=== PATIENT | male | born 1965 | race Caucasian/White ===

== ENCOUNTER 2017-09-06 15:58 | Observation (INO) | payer MEDICAID, OTHER ==
[~2017-09-06] VITALS: Ht 172.7 cm; Wt 110.5 kg
[~2017-09-06 15:58] MED LIST: ATOR10TA15 PO; CINN500C PO; GLIM4TAB PO; HYDR12.57 PO; INSU-171 SQ; LEVO750T33 PO; LISI10TA3 PO; METF-382 PO; METO1TAB42 PO; MINO100 PO; MULT1TAB84 PO; NOVO7030P2 SQ
[2017-09-06 16:27] VITALS: BP 205/93; PULSE 97; RESP 14; TEMP 98.2; O2SAT 98
--- NOTE | 2017-09-06 17:39 | PD ---
HPI Chief Complaint: Chest Pain Time Seen by Provider: 17:37 Travel History International Travel<30 days: No Contact w/Intl Traveler<30days: No Traveled to known affect area: No History of Present Illness HPI 51-year-old male with history of hypertension, asthma, diabetes, presents the emergency department for evaluation of acute onset chest pain. Pain was substernal in nature. It did not radiate anywhere. It was accompanied by diaphoresis, nausea, and lightheadedness. This around 4 PM today when the patient came inside from being in the heat all day. He checked his blood pressure and noticed it was high with a systolic greater than 200 and a diastolic greater than 100. That is why he came to the emergency department, with concern for his blood pressure. While sitting and waiting, the patient states he began to cool off and the chest pain subsided. He has been belching frequently since then. He remained diaphoretic and clammy feeling. He denies any pain at this time. PFSH Past Medical History Diabetes: Yes Respiratory: Yes Social History Alcohol Use: No Tobacco Use: No Substance Use: No Allergies-Medications (Allergen,Severity, Reaction): Uncoded Allergies: tia/poly/hc otic donny (Adverse Reaction, Unknown, Rash, 09/06/17) Reported Meds & Prescriptions Reported Meds & Active Scripts Active Reported Amlodipine (Amlodipine Besylate) 2.5 Mg Tab 2.5 Mg PO DAILY Metformin ER (Metformin HCl) 1,000 Mg Anjali 1,000 Mg PO DAILY With evening meal Review of Systems Except as stated in HPI: all other systems reviewed are Neg Physical Exam Narrative GENERAL: Well-nourished male patient, in no acute distress SKIN: Focused skin assessment warm/dry. HEAD: Atraumatic. Normocephalic. EYES: Pupils equal and round. No scleral icterus. No injection or drainage. ENT: No nasal bleeding or discharge. Mucous membranes pink and moist. NECK: Trachea midline. No JVD. CARDIOVASCULAR: Elevated rate and rhythm. No murmur appreciated. RESPIRATORY: No accessory muscle use. Clear to auscultation. Breath sounds equal bilaterally. GASTROINTESTINAL: Abdomen rotund, soft, nontender.. Hepatic and splenic margins not palpable. MUSCULOSKELETAL: No obvious deformities. No clubbing. No cyanosis. No edema. NEUROLOGICAL: Awake and alert. No obvious cranial nerve deficits. Motor grossly within normal limits. Normal speech. PSYCHIATRIC: Appropriate mood and affect; insight and judgment normal. Data Data Last Documented VS Vital Signs Date Time Temp Pulse Resp B/P (MAP) Pulse Ox O2 Delivery O2 Flow Rate FiO2 09/06/17 18:08 83 16 157/74 (101) 97 Room Air 09/06/17 17:44 21 09/06/17 16:27 98.2 Orders Orders Electrocardiogram (09/06/17 16:35) Complete Blood Count With Diff (09/06/17 16:35) Basic Metabolic Panel (Bmp) (09/06/17 16:35) Ckmb (Isoenzyme) Profile (09/06/17 16:35) Troponin I (09/06/17 16:35) Iv Access Insert/Monitor (09/06/17 16:35) Ecg Monitoring (09/06/17 16:35) Oxygen Administration (09/06/17 16:35) Oximetry (09/06/17 16:35) Chest, Pa & Lat (09/06/17 16:35) Aspirin Chew (Aspirin Chew) (09/06/17 18:00) Nitroglycerin 2% Oint (Nitroglycerin 2% (09/06/17 18:00) Sodium Chlorid 0.9% 500 Ml Inj (Ns 500 M (09/06/17 18:00) CKMB (09/06/17 16:52) CKMB% (09/06/17 16:52) Admit Order (Ed Use Only) (09/06/17 18:35) Labs Laboratory Tests Test 09/06/17 16:52 White Blood Count 10.2 TH/MM3 Red Blood Count 5.46 MIL/MM3 Hemoglobin 15.0 GM/DL Hematocrit 44.4 % Mean Corpuscular Volume 81.2 FL Mean Corpuscular Hemoglobin 27.4 PG Mean Corpuscular Hemoglobin Concent 33.8 % Red Cell Distribution Width 13.9 % Platelet Count 307 TH/MM3 Mean Platelet Volume 8.1 FL Neutrophils (%) (Auto) 71.9 % Lymphocytes (%) (Auto) 15.5 % Monocytes (%) (Auto) 7.2 % Eosinophils (%) (Auto) 4.9 % Basophils (%) (Auto) 0.5 % Neutrophils # (Auto) 7.3 TH/MM3 Lymphocytes # (Auto) 1.6 TH/MM3 Monocytes # (Auto) 0.7 TH/MM3 Eosinophils # (Auto) 0.5 TH/MM3 Basophils # (Auto) 0.1 TH/MM3 CBC Comment DIFF FINAL Differential Comment Blood Urea Nitrogen 13 MG/DL Creatinine 1.54 MG/DL Random Glucose 303 MG/DL Calcium Level 8.6 MG/DL Sodium Level 140 MEQ/L Potassium Level 3.8 MEQ/L Chloride Level 104 MEQ/L Carbon Dioxide Level 24.4 MEQ/L Anion Gap 12 MEQ/L Estimat Glomerular Filtration Rate 48 ML/MIN Total Creatine Kinase 133 U/L Creatine Kinase MB 2.8 NG/ML Troponin I LESS THAN 0.02 NG/ML MDM Medical Decision Making Medical Screen Exam Complete: Yes Emergency Medical Condition: Yes Medical Record Reviewed: Yes Differential Diagnosis ACS versus indigestion versus bronchospasm versus esophageal spasm versus chest wall pain versus pleuritic pain versus anxiety Narrative Course 51-year-old male presents emergency department for evaluation of acute onset chest pain with elevated blood pressure, diaphoresis, lightheadedness, and nausea. Patient appears nontoxic. He is currently not having any pain however he does feel clammy. Laboratory Tests Test 09/06/17 16:52 White Blood Count 10.2 TH/MM3 Red Blood Count 5.46 MIL/MM3 Hemoglobin 15.0 GM/DL Hematocrit 44.4 % Mean Corpuscular Volume 81.2 FL Mean Corpuscular Hemoglobin 27.4 PG Mean Corpuscular Hemoglobin Concent 33.8 % Red Cell Distribution Width 13.9 % Platelet Count 307 TH/MM3 Mean Platelet Volume 8.1 FL Neutrophils (%) (Auto) 71.9 % Lymphocytes (%) (Auto) 15.5 % Monocytes (%) (Auto) 7.2 % Eosinophils (%) (Auto) 4.9 % Basophils (%) (Auto) 0.5 % Neutrophils # (Auto) 7.3 TH/MM3 Lymphocytes # (Auto) 1.6 TH/MM3 Monocytes # (Auto) 0.7 TH/MM3 Eosinophils # (Auto) 0.5 TH/MM3 Basophils # (Auto) 0.1 TH/MM3 CBC Comment DIFF FINAL Differential Comment Blood Urea Nitrogen 13 MG/DL Creatinine 1.54 MG/DL Random Glucose 303 MG/DL Calcium Level 8.6 MG/DL Sodium Level 140 MEQ/L Potassium Level 3.8 MEQ/L Chloride Level 104 MEQ/L Carbon Dioxide Level 24.4 MEQ/L Anion Gap 12 MEQ/L Estimat Glomerular Filtration Rate 48 ML/MIN Total Creatine Kinase 133 U/L Creatine Kinase MB 2.8 NG/ML Troponin I LESS THAN 0.02 NG/ML Last Impressions Chest X-Ray 09/06/17 7835 Signed Impressions: CONCLUSION: Negative examination. Results are discussed with my attending and the patient. Patient will be admitted to the chest pain center. They are in agreement with this plan of care. Diagnosis Primary Impression: Chest pain Qualified Codes: R07.9 - Chest pain, unspecified Admitting Information Admitting Physician Requests: Observation Condition: Stable Myra Carolnia Sep 06, 2017 17:39
--- NOTE | 2017-09-06 17:40 | RADRPT ---
EXAM DATE: 09/06/2017 5:02 PM EDT AGE/SEX: 51 years / Male INDICATIONS: Chest pain. CLINICAL DATA: This is the patient's initial encounter. Patient reports that signs and symptoms have been present for 1 day and indicates a pain score of 5/10. MEDICAL/SURGICAL HISTORY: Hypertension. None. COMPARISON: No prior exams available for comparison. FINDINGS: PA and lateral views of the chest demonstrate the lungs to be symmetrically aerated without evidence of mass, infiltrate or effusion. The cardiomediastinal contours are unremarkable. Osseous structures are intact. CONCLUSION: Negative examination. Electronically signed by: Raghav Lew MD 09/06/2017 5:39 PM EDT
[2017-09-06 17:44] VITALS: BP 184/91; PULSE 92; RESP 16; O2SAT 96
[2017-09-06] MEDS ORDERED: AMLO2.5T PO (17:48)
[2017-09-06 17:57] LABS: AUTOMATED NEUTROPHIL # 7.3 TH/MM3 (1.8-7.7); BASOPHIL # 0.1 TH/MM3 (0-0.2); BASOPHIL % 0.5 % (0.0-2.0); EOSINOPHIL # 0.5 TH/MM3 (0-0.4); EOSINOPHIL % 4.9 % (0.0-4.0); HEMATOCRIT 44.4 % (39.0-51.0); LYMPH % 15.5 % (9.0-44.0); LYMPHOCYTE # 1.6 TH/MM3 (1.0-4.8); MEAN CELL VOLUME 81.2 FL (80.0-100.0); MEAN CORPUSCULAR HEMOGLOBIN 27.4 PG (27.0-34.0); MEAN CORPUSCULAR HGB CONC 33.8 % (32.0-36.0); MEAN PLATELET VOLUME 8.1 FL (7.0-11.0); MONO % 7.2 % (0.0-8.0); MONOCYTE # 0.7 TH/MM3 (0-0.9); NEUT % 71.9 % (16.0-70.0); PLATELET COUNT 307 TH/MM3 (150-450); RED BLOOD COUNT 5.46 MIL/MM3 (4.50-5.90); RED CELL DISTRIBUTION WIDTH 13.9 % (11.6-17.2); WHITE BLOOD COUNT 10.2 TH/MM3 (4.0-11.0)
[2017-09-06] MEDS ORDERED: ASPIRIN 81 MG CHEW TAB PO ONE (18:00)
[2017-09-06] MEDS ORDERED: SODIUM CHLORID 0.9% 500 ML INJ 500 ML IV ONE (18:00)
[2017-09-06] MEDS ORDERED: NITROGLYCERIN 2% OINT 1 GM PACKET TOP ONE (18:00)
[2017-09-06 18:08] VITALS: BP 157/74; PULSE 83; RESP 16; O2SAT 97
[2017-09-06 18:15] LABS: BICARBONATE 24.4 MEQ/L (21.0-32.0); BLOOD UREA NITROGEN 13 MG/DL (7-18); CALCIUM 8.6 MG/DL (8.5-10.1); CHLORIDE 104 MEQ/L (98-107); CREATININE 1.54 MG/DL (0.60-1.30); GLOMERULAR FILTRATION RATE 48 ML/MIN (>89); GLUCOSE,RANDOM 303 MG/DL (74-106); SODIUM (NA) 140 MEQ/L (136-145)
[2017-09-06 18:19] LABS: TROPONIN I LESS THAN 0.02 NG/ML (0.02-0.05)
[2017-09-06] MEDS ORDERED: SODIUM CHLORIDE 0.9% FLUSH 10 ML FLUSH IV FLUSH PRN (18:45)
[2017-09-06] MEDS ORDERED: NITROGLYCERIN 0.4 MG SL 25 TABS/BTL SL PRN (18:45)
[2017-09-06 21:06] LABS: TROPONIN I LESS THAN 0.02 NG/ML (0.02-0.05)
[2017-09-06 22:19] VITALS: BP 147/70; PULSE 89; RESP 20; TEMP 97.4; O2SAT 96
[2017-09-06] MEDS: SODIUM CHLORIDE 0.9% FLUSH 10 ML FLUSH IV FLUSH SCH (23:22)
[2017-09-07 00:27] VITALS: BP 171/81; PULSE 74; RESP 20; TEMP 97.5; O2SAT 97
[2017-09-07 02:13] LABS: TROPONIN I LESS THAN 0.02 NG/ML (0.02-0.05)
[2017-09-07 04:26] VITALS: BP 168/88; PULSE 79; RESP 18; TEMP 97.9; O2SAT 98
[2017-09-07] MEDS ORDERED: DEXTROSE 50% IN WATER 50 ML VIAL(D50) IV PUSH PRN (08:00)
[2017-09-07] MEDS ORDERED: GLUCAGON 1 MG/ML VIAL OTHER PRN (08:00)
--- NOTE | 2017-09-07 08:31 | EKG ---
Date Performed: 09/06/2017 Time Performed: 21:28:20 PTAGE: 51 years EKG: Sinus rhythm NORMAL ECG PREVIOUS TRACING : 09/06/2017 16.48 DOCTOR: Chema Sánchez Interpretating Date/Time 09/07/2017 08:30:53
--- NOTE | 2017-09-07 08:31 | EKG ---
Date Performed: 09/07/2017 Time Performed: 01:23:22 PTAGE: 51 years EKG: Sinus rhythm NORMAL ECG PREVIOUS TRACING : 09/06/2017 21.28 DOCTOR: Chema Sánchez Interpretating Date/Time 09/07/2017 08:30:38
--- NOTE | 2017-09-07 08:32 | EKG ---
Date Performed: 09/06/2017 Time Performed: 16:48:59 PTAGE: 51 years EKG: Sinus rhythm INCOMPLETE RIGHT BUNDLE BRANCH BLOCK BORDERLINE ECG Agree NO PREVIOUS TRACING DOCTOR: Chema Sánchez Interpretating Date/Time 09/07/2017 08:31:53
[2017-09-07 08:42] VITALS: BP 171/88; PULSE 86; RESP 18; TEMP 98.1; O2SAT 97
[2017-09-07 08:50] VITALS: PULSE 88
[2017-09-07] MEDS: SODIUM CHLORIDE 0.9% FLUSH 10 ML FLUSH IV FLUSH SCH (08:58)
[2017-09-07] MEDS ORDERED: amLODIPine BESYLATE 5 MG TAB PO SCH (09:00)
[2017-09-07] MEDS ORDERED: PANTOPRAZOLE SOD 40 MG DELAYED RELEASE TAB PO SCH (09:00)
--- NOTE | 2017-09-07 09:08 | HHI.HP ---
HPI Primary Care Physician No Primary Care Physician Chief Complaint chest pain, elevated b/p History of Present Illness 51 y.o. male with history of HTN, obesity, GERD, DM Type 2, Borderline Hyperlipidemia, COPD, DAWIT w/ use of CPAP. He presented to the ER for c/o lower sternum chest pain pointing to the xiphoid process and just below mid to upper epigastrium. Yesterday after working the morning in his usual [employer] at the [employer], he and his undertook walking quite a distance in the heat of the midday on [place]. After getting back home later in the afternoon somewhat overheated he developed he developed discomfort in the area described above. No associated N/V or diaphoresis. No radiation of pain. No dyspnea. Did take his B/ P and systolic was > 200 so he became concerned and presented to the ER for evaluation. Discomfort lasted approximately 30 minutes. He has had no return of the discomfort. He did had nitro paste placed in the ER. He denies any known history of heart disease. Hx of ETT ~ 10 years ago which he states was normal, none since. Currently has no PCP, recently received Rx for low dose Amlodipine 2.5 mg daily when he went to [facility] [place] for ear infection/ allergies. Review of Systems Consitutional: DENIES: Fatigue, Fever, Chills, Weight gain, Weight loss Eyes: DENIES: Amaurosis Fugax, Change in vision HEENT: DENIES: Lightheadedness, Change in hearing Respiratory: DENIES: See HPI, Cough, Snoring, Shortness of breath, Wheezing, Sputum production Cardiovascular: COMPLAINS OF: See HPI, Chest pain (as described in HPI), Palpitations, Syncope, Tachycardia Gastrointestinal: DENIES: Nausea, Vomiting, Change in bowel habits, Reflux, Bloody stools, Melena Genitourinary: DENIES: Urinary incontinence, Difficulty voiding Integumentary: DENIES: Rash Neurologic: COMPLAINS OF: Tingling or numbness, Memory problems, Poor Balance, Stroke symptoms Musculoskeletal: COMPLAINS OF: Joint pain (foot pain/balance issues chronic) Psychiatric: DENIES: Anxiety, Depression, Sleep disturbances Hematologic: DENIES: Bruising tendencies, Bleeding tendencies Endocrine: DENIES: Weight gain, Weight loss, Thyroid disease Past Family Social History Allergies: Uncoded Allergies: tia/poly/hc otic donny (Adverse Reaction, Unknown, Rash, 09/06/17) Past Medical History HTN, TYPE 2 DM, DAWIT w/ CPAP, OBESITY, HLD, GERD, Amputated toe Past Surgical History amputated toe Reported Medications OTC Prevacid 30 mg daily Reported Meds & Active Scripts Active Reported Amlodipine (Amlodipine Besylate) 2.5 Mg Tab 2.5 Mg PO DAILY Metformin ER (Metformin HCl) 1,000 Mg Anjali 1,000 Mg PO DAILY With evening meal Active Ordered Medications Current Medications Medications (Trade) Dose Ordered Sig/Lissett Route Start Time Stop Time Status Last Admin (NS Flush) 2 ml UNSCH PRN IV FLUSH 09/06/17 18:45 (NS Flush) 2 ml BID IV FLUSH 09/06/17 21:00 09/06/17 23:22 (Nitrostat Sl) 0.4 mg Q5M PRN SL 09/06/17 18:45 (Norvasc) 5 mg DAILY PO 09/07/17 09:00 (Protonix) 40 mg DAILY PO 09/07/17 09:00 (D50w (Vial) Inj) 50 ml UNSCH PRN IV PUSH 09/07/17 08:00 (Glucagon Inj) 1 mg UNSCH PRN OTHER 09/07/17 08:00 Family History MOM: HTN, Possible CAD requiring stent Social History , Works at [employer] (has a [employer] there) Denies ETOH (quit in 1997) Denies Illicit drug use Former Tobacco use (Quit 1999, 2 ppd x 5-6 yrs = 10-12 pk/yrs Physical Exam Vital Signs Vital Signs Date Time Temp Pulse Resp B/P (MAP) Pulse Ox O2 Delivery O2 Flow Rate FiO2 09/07/17 08:50 88 09/07/17 08:42 98.1 86 18 171/88 (115) 97 09/07/17 05:56 21 09/07/17 04:26 97.9 79 18 168/88 (114) 98 09/07/17 00:27 97.5 74 20 171/81 (111) 97 09/06/17 22:19 97.4 89 20 147/70 (95) 96 09/06/17 18:08 83 16 157/74 (101) 97 Room Air 09/06/17 17:44 95 Room Air 21 09/06/17 17:44 92 16 184/91 (122) 96 Room Air 09/06/17 17:43 93 18 97 Room Air 09/06/17 16:27 98.2 97 14 205/93 (130) 98 Physical Exam GENERAL: Alert, Pleasant Male lying quietly in bed, morbidly obese, Oriented x 4 SKIN: Warm and dry. HEAD: Atraumatic. Normocephalic. Klein EYES: Pupils equal and round. No scleral icterus. No injection or drainage. ENT: No nasal bleeding or discharge. Mucous membranes pink and moist. NECK: Trachea midline. No JVD. No Carotid Bruits CARDIOVASCULAR: Regular rate and rhythm. S1 and S2, No S3, S4, rub or gallop. No murmur RESPIRATORY: No accessory muscle use. Clear to auscultation. Breath sounds equal bilaterally. GASTROINTESTINAL: Abdomen softly obese, non-tender, nondistended. Hepatic and splenic margins not palpable. MUSCULOSKELETAL: Extremities without clubbing, cyanosis, or edema. No obvious deformities. No palpable chest wall tenderness NEUROLOGICAL: Awake and alert. No obvious cranial nerve deficits. Motor grossly within normal limits. Five out of 5 muscle strength in the arms and legs. Normal speech. PSYCHIATRIC: Appropriate mood and affect; insight and judgment normal. EXTREMITIES: no edema Laboratory Laboratory Tests Test 09/06/17 16:52 09/06/17 20:30 09/07/17 01:10 White Blood Count 10.2 Red Blood Count 5.46 Hemoglobin 15.0 Hematocrit 44.4 Mean Corpuscular Volume 81.2 Mean Corpuscular Hemoglobin 27.4 Mean Corpuscular Hemoglobin Concent 33.8 Red Cell Distribution Width 13.9 Platelet Count 307 Mean Platelet Volume 8.1 Neutrophils (%) (Auto) 71.9 Lymphocytes (%) (Auto) 15.5 Monocytes (%) (Auto) 7.2 Eosinophils (%) (Auto) 4.9 Basophils (%) (Auto) 0.5 Neutrophils # (Auto) 7.3 Lymphocytes # (Auto) 1.6 Monocytes # (Auto) 0.7 Eosinophils # (Auto) 0.5 Basophils # (Auto) 0.1 CBC Comment DIFF FINAL Differential Comment Blood Urea Nitrogen 13 Creatinine 1.54 Random Glucose 303 Calcium Level 8.6 Sodium Level 140 Potassium Level 3.8 Chloride Level 104 Carbon Dioxide Level 24.4 Anion Gap 12 Estimat Glomerular Filtration Rate 48 Total Creatine Kinase 133 127 120 Creatine Kinase MB 2.8 2.2 2.6 Troponin I LESS THAN 0.02 LESS THAN 0.02 LESS THAN 0.02 Result Diagram: 09/06/17 1652 09/06/17 1652 Imaging Last 24 hours Impressions Chest X-Ray 09/06/17 1635 Signed Impressions: CONCLUSION: Negative examination. EKGs x 3 = NSR, No ST-T changes Caprini VTE Risk Assessment Caprini Risk Assessment Model Point Value = 1 Point Value = 2 Point Value = 3 Point Value = 5 Age 41-60 Minor surgery BMI > 25 kg/m2 Swollen legs Varicose veins or History of unexplained or recurrent spontaneous Oral contraceptives or hormone replacement Sepsis (< 1 month) Serious lung disease, including pneumonia (< 1 month) Abnormal pulmonary function Acute myocardial infarction Congestive heart failure (< 1 month) History of inflammatory bowel disease Medical patient at bed rest Age 61-74 Arthroscopic surgery Major open surgery (> 45 min) Laparoscopic surgery (> 45 min) Malignancy Confined to bed (> 72 hours) Immobilizing plaster cast Central venous access Age >= 75 History of VTE Family history of VTE Factor V Leiden Prothrombin [id number] Lupus anticoagulant Anticardiolipin antibodies Elevated serum homocysteine Heparin-induced thrombocytopenia Other congenital or acquired thrombophilia Stroke (< 1 month) Elective arthroplasty Hip, pelvis, or leg fracture Acute spinal cord injury (< 1 month) Prophylaxis Regimen Total Risk Factor Score Risk Level Prophylaxis Regimen 0-1 Low Early ambulation 2 Moderate Order ONE of the following: *Sequential Compression Device (SCD) *Heparin 5000 units SQ BID 3-4 Higher Order ONE of the following medications: *Heparin 5000 units SQ TID *Enoxaparin/Lovenox 40 mg SQ daily (WT < 150 kg, CrCl > 30 mL/min) *Enoxaparin/Lovenox 30 mg SQ daily (WT < 150 kg, CrCl > 10-29 mL/min) *Enoxaparin/Lovenox 30 mg SQ BID (WT < 150 kg, CrCl > 30 mL/min) AND/OR *Sequential Compression Device (SCD) 5 or more Highest Order ONE of the following medications: *Heparin 5000 units SQ TID (Preferred with Epidurals) *Enoxaparin/Lovenox 40 mg SQ daily (WT < 150 kg, CrCl > 30 mL/min) *Enoxaparin/Lovenox 30 mg SQ daily (WT < 150 kg, CrCl > 10-29 mL/min) *Enoxaparin/Lovenox 30 mg SQ BID (WT < 150 kg, CrCl > 30 mL/min) AND *Sequential Compression Device (SCD) Assessment and Plan Assessment and Plan #1 Admitted to chest pain center overnight for observation and telemetry. Patient was ruled out for ACS with 3 sets of negative enzymes and EKGs. Telemetry showed no events. Patient has had no reoccurrence of pain. Patient was evaluted by Dr. Sánchez in Cardiology. Given the patient's symptoms and risk factors, plan is to proceed today with Lexiscan Nuclear stress test for evaluation for ischemia. Patient states unable to ambulate on Treadmill secondary to poor balance and foot pain therefore unlikely to generate 4 METs. Patient is agreeable to the plan. If Stress test is negative for Ischemia, then patient will likely be discharged home later today. If results demonstrate other , then further recommendations will follow. #2 Hypertension- Increase Amlodipine to 5 mg daily and patient encouraged to establish care w/ PCP of his choosing or local clinic which he is aware of and discussed importance of diabetic heart healthy low sodium diet and exercise to tolerance for weight reduction. Encouraged monitoring of b/p as outpatient for surveillance as well as physician f/u #3- DM 2: likely uncontrolled given his Random glucose of 303. Accuchecks ordered here during admission. He will continue his Metformin 1000 mg bid as outpatient if discharged and strongly encouraged to establish with physician for better control, diabetic education/dietary class would be beneficial. #4 Obesity: as discussed above #5 GERD: continue OTC PPI PRN. F/U w/ PCP Code Status Full Code Discussed Condition With Dr. Sánchez (Cardiology) Florence Kelley Sep 07, 2017 09:08
--- NOTE | 2017-09-07 09:12 | PD.CARD.PN ---
Subjective Subjective Remarks 51-year-old gentleman he was presented by the nurse practitioner and then seen and examined personally. His history is documented is consistent with heat fatigue and some dehydration. He also has a long-standing history of GERD and has been having some increased problems recently. His symptoms are very atypical for ischemic heart disease at this time however because of his risk factors further evaluation was felt appropriate. He will be evaluated using standard chest pain center protocol and a nuclear stress test. If he rules out he will be followed up outpatient. While he does not have a physician at this time he has establishing with Steffanie and understands the importance of following up once he has established. Objective Medications Current Medications Medications (Trade) Dose Ordered Sig/Lissett Route Start Time Stop Time Status Last Admin (NS Flush) 2 ml UNSCH PRN IV FLUSH 09/06/17 18:45 (NS Flush) 2 ml BID IV FLUSH 09/06/17 21:00 09/07/17 08:58 (Nitrostat Sl) 0.4 mg Q5M PRN SL 09/06/17 18:45 (Norvasc) 5 mg DAILY PO 09/07/17 09:00 09/07/17 08:58 (Protonix) 40 mg DAILY PO 09/07/17 09:00 09/07/17 08:58 (D50w (Vial) Inj) 50 ml UNSCH PRN IV PUSH 09/07/17 08:00 (Glucagon Inj) 1 mg UNSCH PRN OTHER 09/07/17 08:00 Vital Signs / I&O Vital Signs Date Time Temp Pulse Resp B/P (MAP) Pulse Ox O2 Delivery O2 Flow Rate FiO2 09/07/17 08:50 88 09/07/17 08:42 98.1 86 18 171/88 (115) 97 09/07/17 05:56 21 09/07/17 04:26 97.9 79 18 168/88 (114) 98 09/07/17 00:27 97.5 74 20 171/81 (111) 97 09/06/17 22:19 97.4 89 20 147/70 (95) 96 09/06/17 18:08 83 16 157/74 (101) 97 Room Air 09/06/17 17:44 95 Room Air 21 09/06/17 17:44 92 16 184/91 (122) 96 Room Air 09/06/17 17:43 93 18 97 Room Air 09/06/17 16:27 98.2 97 14 205/93 (130) 98 Physical Exam Well-nourished well-developed heavily bearded gentleman in no distress Neck cannot be examined well due to the heavy moreland but appears to have no JVD and no bruits Chest slightly diminished breath sounds but clear with no rales wheezes or rhonchi Cardiovascular regular sinus rhythm no gallops or rubs there is a soft 1/6 systolic murmur Abdomen is obese soft nontender Laboratory Laboratory Tests Test 09/06/17 16:52 09/06/17 20:30 09/07/17 01:10 White Blood Count 10.2 TH/MM3 Red Blood Count 5.46 MIL/MM3 Hemoglobin 15.0 GM/DL Hematocrit 44.4 % Mean Corpuscular Volume 81.2 FL Mean Corpuscular Hemoglobin 27.4 PG Mean Corpuscular Hemoglobin Concent 33.8 % Red Cell Distribution Width 13.9 % Platelet Count 307 TH/MM3 Mean Platelet Volume 8.1 FL Neutrophils (%) (Auto) 71.9 % Lymphocytes (%) (Auto) 15.5 % Monocytes (%) (Auto) 7.2 % Eosinophils (%) (Auto) 4.9 % Basophils (%) (Auto) 0.5 % Neutrophils # (Auto) 7.3 TH/MM3 Lymphocytes # (Auto) 1.6 TH/MM3 Monocytes # (Auto) 0.7 TH/MM3 Eosinophils # (Auto) 0.5 TH/MM3 Basophils # (Auto) 0.1 TH/MM3 CBC Comment DIFF FINAL Differential Comment Blood Urea Nitrogen 13 MG/DL Creatinine 1.54 MG/DL Random Glucose 303 MG/DL Calcium Level 8.6 MG/DL Sodium Level 140 MEQ/L Potassium Level 3.8 MEQ/L Chloride Level 104 MEQ/L Carbon Dioxide Level 24.4 MEQ/L Anion Gap 12 MEQ/L Estimat Glomerular Filtration Rate 48 ML/MIN Total Creatine Kinase 133 U/L 127 U/L 120 U/L Creatine Kinase MB 2.8 NG/ML 2.2 NG/ML 2.6 NG/ML Troponin I LESS THAN 0.02 NG/ML LESS THAN 0.02 NG/ML LESS THAN 0.02 NG/ML Imaging Last 24 hours Impressions Chest X-Ray 09/06/17 4366 Signed Impressions: CONCLUSION: Negative examination. Assessment and Plan Assessment and Plan Patient has ruled out for ACS will be evaluated with a nuclear stress test. If this proved to be negative as anticipated he will be discharged for further follow-up once he is established with [facility] and a primary care physician. Code Status Full code Discussed Condition With Discussed the situation with the patient and he understands the importance of further outpatient Chema Sánchez MD Sep 07, 2017 09:12
[2017-09-07 10:49] VITALS: PULSE 86
[2017-09-07] MEDS ORDERED: REGADENOSON INJ 0.4 MG/5 ML SYR ONE (11:47)
[2017-09-07 12:40] VITALS: BP 145/84; PULSE 87; RESP 18; TEMP 97.5; O2SAT 97
--- NOTE | 2017-09-07 13:01 | RADRPT ---
EXAM DATE: 09/07/2017 12:56 PM EDT AGE/SEX: 51 years / Male INDICATIONS:Angina. . Substernal chest pain. CLINICAL DATA: This is the patient's initial encounter. Patient reports that signs and symptoms have been present for 1 day and indicates a pain score of 2/10. MEDICAL/SURGICAL HISTORY: Hypertension. Diabetes mellitus type II. Asthma. . Left foot surger y. COMPARISON: No prior exams available for comparison. DOSE: 11 mCi Tc 99m Myoview at rest 35 mCi [id number] at stress 0.4 mg Lexiscan STRESS SYMPTOMS: Asymptomatic. EJECTION FRACTION: 59 % TECHNIQUE: The patient underwent pharmacologic stress with infusion of prescribed dose. Continuous ECG tracing was monitored during stress. Gated SPECT imaging was performed after stress and conventi onal SPECT imaging was performed at rest. The examination was performed on a SPECT/CT scanner, both attenuation and non-corrected datasets were reviewed. FINDINGS: Distribution: The maximum perfused segment at stress is in the inferoseptal wall. Perfusion Study: The pattern of perfusion at stress is within normal limits. Gated Study: There are intact wall motion and wall thickening without hypokinetic or dyskinetic segm ents. The ejection fraction is calculated at 59%. RISK CATEGORY: Low (<1% Annual Motality Rate) CONCLUSION: 1. No reversible perfusion defects to suggest ischemia. 2. Normal ejection fraction. Electronically signed by: Edward Engle MD 09/07/2017 1:00 PM EDT
[2017-09-07] MEDS ORDERED: AMLO5 PO (13:31)
--- NOTE | 2017-09-07 13:34 | HHI.DCPOC ---
Discharge Care Plan Diagnosis: (1) Chest pain (2) HTN (hypertension) (3) Diabetes mellitus with hyperglycemia Goals to Promote Your Health * To prevent worsening of your condition and complications * To maintain your health at the optimal level Directions to Meet Your Goals Take your medications as prescribed Follow your dietary instruction Follow activity as directed Keep your appointments as scheduled Take your immunizations and boosters as scheduled If your symptoms worsen call your PCP, if no PCP go to Urgent Care Center or Emergency Room Smoking is Dangerous to Your Health. Avoid second hand smoke Call the 24-hour hour crisis hotline for domestic abuse at Florence KelleyP Sep 07, 2017 13:34
--- NOTE | 2017-09-07 16:37 | TR ---
Date Performed: 09/07/2017 Time Performed: 11:51:03 DOCTOR: Chema Sánchez DRUG LIST: CLINICAL HISTORY: REASON FOR TEST: REASON FOR ENDING: OBSERVATION: CONCLUSION: Lexiscan stress test was performed under standard four minute protocol. Radionuclide was injected one minute prior to ending the test. No electrocardiographic abormalities were present to suggest ischemia. Nuclear imaging and interpretation are pending. COMMENTS: Subsequent negative study
== END 2017-09-07 15:25 | disposition home or self-care (01) ==
LOC: NEPC 15:58 → NEDA 18:37 → NEPHCDU 19:52
PROVIDERS: ADMIT Internal Medicine Interventional Cardiology; ATTEND Internal Medicine Interventional Cardiology
DX: R07.9 Chest pain, unspecified (principal); I10 Essential (primary) hypertension; E11.65 Type 2 diabetes mellitus with hyperglycemia; K21.9 Gastro-esophageal reflux disease without esophagitis; J44.9 Chronic obstructive pulmonary disease, unspecified; G47.33 Obstructive sleep apnea (adult) (pediatric); E78.5 Hyperlipidemia, unspecified; Z99.81 Dependence on supplemental oxygen; R61 Generalized hyperhidrosis; R42 Dizziness and giddiness; R11.0 Nausea; E86.0 Dehydration; R94.31 Abnormal electrocardiogram [ECG] [EKG]
CPT/HCPCS: 71046; 78452; 80048; 82550; 82552; 82948; 84484; 85025; 93005; 93017; 99285; A9502; G0378; J2785; J7040